=== PATIENT | female | born 1975 | race Hispanic/Latino ===

== ENCOUNTER 2017-11-28 17:44 | Emergency (ER) | payer MEDICAID, OTHER ==
[2017-11-28] MEDS ORDERED: ONDANSETRON ODT 4 MG TAB ONE (18:29)
== END 2017-11-28 18:44 | disposition home or self-care (01) ==
LOC: EDH 17:44 → EDBD 17:44 → EDH 18:44
DX: E86.0 Dehydration (principal); F41.9 Anxiety disorder, unspecified; B96.81 Helicobacter pylori [H. pylori] as the cause of diseases classified elsewhere; Z88.0 Allergy status to penicillin; Z88.1 Allergy status to other antibiotic agents; Z98.890 Other specified postprocedural states

== ENCOUNTER 2018-04-18 13:01 | Emergency (ER) | payer MEDICAID ==
[2018-04-18 13:44] LABS: BASOPHILS % (AUTO) 1.1 % (0.0-5.0); EOSINOPHILS % (AUTO) 1.1 % (0.0-8.0); HEMATOCRIT 33.8 % (36-48); LYMPHOCYTES % (AUTO) 22.4 % (21.0-51.0); MEAN CORPUSCULAR HEMOGLOBIN 24.4 pg (27.0-33.0); MEAN CORPUSCULAR HGB CONC 31.4 g/dL (32.0-36.0); MEAN CORPUSCULAR VOLUME 77.6 fL (79-99); MONOCYTES % (AUTO) 12.4 % (3.0-13.0); NUCLEATED RED BLOOD CELLS 0.1 % (0.0-0.19); PLATELET COUNT (AUTO) 195 K/uL (130-400); RED BLOOD CELL COUNT(AUTO) 4.35 MIL/uL (4.00-5.50); WHITE BLOOD COUNT (AUTO) 6.2 K/uL (4.8-10.8)
[2018-04-18 13:50] LABS: APPEARANCE,URINE Cloudy (CLEAR); BILIRUBIN,URINE Negative (NEGATIVE); COLOR,URINE Dark Yellow (YELLOW); GLUCOSE, URINE (UA) Negative (NEGATIVE); KETONES,URINE 15 mg/dL (NEGATIVE); LEUKOCYTE ESTERASE ,URINE Small (NEGATIVE); NITRATE,URINE Negative (NEGATIVE); OCCULT BLOOD,URINE Negative (NEGATIVE); PH,URINE 7.5 (5.0-8.0); PROTEIN,URINE Trace (NEGATIVE)
[2018-04-18 13:56] LABS: CREATININE 0.8 mg/dL (0.5-1.5); POTASSIUM 3.8 mmol/L (3.5-5.1)
[2018-04-18 13:58] LABS: AMPHET/METH SCREEN,URINE NEGATIVE (NEGATIVE); BARBITURATE SCREEN, URINE NEGATIVE (NEGATIVE); BENZODIAZEPINES SCREEN,URINE NEGATIVE (NEGATIVE); CANNABINOID SCREEN,URINE POSITIVE (NEGATIVE); COCAINE SCREEN,URINE POSITIVE (NEGATIVE); OPIATE SCREEN,URINE NEGATIVE (NEGATIVE); PHENCYCLIDINE SCREEN,URINE NEGATIVE (NEGATIVE)
[2018-04-18 14:02] LABS: ALBUMIN 4.2 g/dL (3.5-5.0); BILIRUBIN,TOTAL 0.7 mg/dL (0.2-1.0); MAGNESIUM 2.4 mg/dL (1.80-2.40)
[2018-04-18 14:20] LABS: BACTERIA,URINE Few /HPF (None Seen)
[2018-04-18 14:23] LABS: RBC,URINE 0-1 /HPF (0-1); SQUAMOUS EPITHELIAL CELL,UR 30-50 /HPF (0-2)
[2018-04-18 14:26] LABS: HCG,QUAL RESULT NEGATIVE (NEGATIVE)
== END 2018-04-18 14:42 | disposition home or self-care (01) ==
LOC: EDH 13:01
DX: F14.10 Cocaine abuse, uncomplicated (principal); F12.10 Cannabis abuse, uncomplicated; R53.1 Weakness; Z88.1 Allergy status to other antibiotic agents; Z88.0 Allergy status to penicillin; Z88.8 Allergy status to other drugs, medicaments and biological substances
CPT/HCPCS: 36415; 80053; 80305; 81001; 81025; 83735; 85025; 93005

== ENCOUNTER 2021-12-03 00:38 | Emergency (ER) | payer MEDICAID ==
[2021-12-03 00:56] VITALS: BP 123/75
== END 2021-12-03 01:24 | disposition left against medical advice (07) ==
LOC: EDH 00:38
DX: R07.9 Chest pain, unspecified (principal); Z53.21 Procedure and treatment not carried out due to patient leaving prior to being seen by health care provider

== ENCOUNTER 2022-04-23 08:29 | Emergency (ER) | payer MEDICAID ==
[~2022-04-23] VITALS: Ht 157.5 cm; Wt 68.0 kg
[2022-04-23] MEDS ORDERED: ACETAMINOPHEN 500 MG TABLET PO ONE (09:00)
[2022-04-23] MEDS ORDERED: IPRATROPIUM/ALBUTEROL SULFATE 3 ML SOLUTION IH ONE (09:00)
[2022-04-23 09:15] LABS: INFLUENZA TYPE A NEGATIVE FOR TYPE A (NEG); INFLUENZA TYPE B NEGATIVE FOR TYPE B (NEG)
[2022-04-23] MEDS ORDERED: SOLU-MEDROL 125MG VIAL IM ONE (09:30)
[2022-04-23] MEDS ORDERED: AZITHROMYCIN 250 MG TABLET PO ONE (09:30)
[2022-04-23] MEDS ORDERED: METH4TAB3 PO (09:49)
[2022-04-23] MEDS ORDERED: AZIT1PAC7 PO (09:49)
[2022-04-23] MEDS ORDERED: D-ME118S47 PO (09:49)
[2022-04-23] MEDS ORDERED: ACET-66 PO (09:49)
[2022-04-23 10:10] VITALS: BP 132/78
== END 2022-04-23 10:10 | disposition home or self-care (01) ==
LOC: EDH 08:29
DX: J06.9 Acute upper respiratory infection, unspecified (principal); R05.9 Cough, unspecified; Z20.822 Contact with and (suspected) exposure to COVID-19; D64.9 Anemia, unspecified; F41.9 Anxiety disorder, unspecified; F32.A Depression, unspecified; G62.9 Polyneuropathy, unspecified; Z88.0 Allergy status to penicillin
CPT/HCPCS: 99284; 71045; 87635; 87804 ×2; 96372; 94640; C9803; J2930

== ENCOUNTER 2022-04-26 04:41 | Emergency (ER) | payer MEDICAID ==
[~2022-04-26] VITALS: Ht 160 cm; Wt 68.0 kg
[~2022-04-26 04:41] MED LIST: ACET-66 PO; AZIT1PAC7 PO; D-ME118S47 PO; METH4TAB3 PO
[2022-04-26 06:45] LABS: BASOPHILS % (AUTO) 0.4 % (0.0-5.0); EOSINOPHILS % (AUTO) 1.4 % (0.0-8.0); HEMATOCRIT 31.1 % (36-48); LYMPHOCYTES % (AUTO) 41.7 % (21.0-51.0); MEAN CORPUSCULAR HEMOGLOBIN 24.8 pg (27.0-33.0); MEAN CORPUSCULAR HGB CONC 30.9 g/dL (32.0-36.0); MEAN CORPUSCULAR VOLUME 80.4 fL (79-99); MONOCYTES % (AUTO) 9.6 % (3.0-13.0); NEUTROPHILS % (AUTO) 46.7 % (40.0-77.0); PLATELET COUNT (AUTO) 265 K/uL (130-400); RED BLOOD CELL COUNT(AUTO) 3.87 MIL/uL (4.00-5.50); WHITE BLOOD COUNT (AUTO) 5.1 K/uL (4.8-10.8)
[2022-04-26 07:08] LABS: ALBUMIN 3.5 g/dL (3.5-5.0); CREATININE 0.7 mg/dL (0.5-1.5); POTASSIUM 3.4 mmol/L (3.5-5.1); TOTAL PROTEIN, SERUM 7.1 g/dL (6.0-8.3)
[2022-04-26 08:47] VITALS: BP 122/65
== END 2022-04-26 08:48 | disposition home or self-care (01) ==
LOC: EDH 04:41
DX: R20.2 Paresthesia of skin (principal); D64.9 Anemia, unspecified; G62.9 Polyneuropathy, unspecified; Z88.0 Allergy status to penicillin; Z79.899 Other long term (current) drug therapy
CPT/HCPCS: 36415; 70450; 80053; 85025

== ENCOUNTER 2022-08-27 04:20 | Emergency (ER) | payer MEDICAID ==
[~2022-08-27] VITALS: Ht 165.1 cm; Wt 70.3 kg
[2022-08-27 04:40] LABS: BASOPHILS % (AUTO) 0.7 % (0.0-5.0); EOSINOPHILS % (AUTO) 2.2 % (0.0-8.0); LYMPHOCYTES % (AUTO) 26.6 % (21.0-51.0); MEAN CORPUSCULAR HEMOGLOBIN 23.9 pg (27.0-33.0); MEAN CORPUSCULAR HGB CONC 30.6 g/dL (32.0-36.0); MEAN CORPUSCULAR VOLUME 78.1 fL (79-99); MONOCYTES % (AUTO) 7.8 % (3.0-13.0); NEUTROPHILS % (AUTO) 62.4 % (40.0-77.0); PLATELET COUNT (AUTO) 255 K/uL (130-400); RED BLOOD CELL COUNT(AUTO) 4.48 MIL/uL (4.00-5.50); RED CELL DISTRIBUTION WIDTH 15.7 % (11.0-15.5); WHITE BLOOD COUNT (AUTO) 7.1 K/uL (4.8-10.8)
[2022-08-27 04:41] LABS: APPEARANCE,URINE CLEAR (CLEAR); BILIRUBIN,URINE NEGATIVE (NEGATIVE); COLOR,URINE LIGHT-YELLOW (YELLOW); GLUCOSE, URINE (UA) NEGATIVE (NEGATIVE); KETONES,URINE NEGATIVE (NEGATIVE); LEUKOCYTE ESTERASE ,URINE NEGATIVE Leu/uL (NEGATIVE); NITRATE,URINE NEGATIVE (NEGATIVE); OCCULT BLOOD,URINE NEGATIVE (NEGATIVE); PH,URINE 7.5 (5.0-8.0); PROTEIN,URINE NEGATIVE (NEGATIVE); UROBILINOGEN,URINE 0.2 mg/dL (0.2-1.0)
[2022-08-27 04:48] LABS: CREATININE 0.7 mg/dL (0.5-1.5); POTASSIUM 3.2 mmol/L (3.5-5.1)
[2022-08-27 04:58] LABS: TOTAL PROTEIN, SERUM 7.7 g/dL (6.0-8.3)
[2022-08-27] MEDS ORDERED: DEXAMETHASONE SOD PHOSPHATE 4 MG/ML 1ML VIAL IVP ONE (05:30)
[2022-08-27] MEDS ORDERED: IPRATROPIUM/ALBUTEROL SULFATE 3 ML SOLUTION IH ONE (05:30)
[2022-08-27] MEDS ORDERED: METH4TAB3 PO (05:38)
[2022-08-27] MEDS ORDERED: KCL 20 MEQ ERTAB PO ONE (06:00)
[2022-08-27 06:13] VITALS: BP 128/69
== END 2022-08-27 06:17 | disposition home or self-care (01) ==
LOC: EDH 04:20
DX: J06.9 Acute upper respiratory infection, unspecified (principal); R06.2 Wheezing; E87.6 Hypokalemia; F41.9 Anxiety disorder, unspecified; Z88.0 Allergy status to penicillin; Z79.899 Other long term (current) drug therapy
CPT/HCPCS: 99284; 96374; 80053; 85025; 81003; 36415; 93005; 94640; J1100

== ENCOUNTER 2022-12-05 10:54 | Emergency (ER) | payer MEDICAID ==
[~2022-12-05] VITALS: Ht 152.4 cm; Wt 63.5 kg
[2022-12-05 10:56] VITALS: BP 101/66
== END 2022-12-05 12:52 | disposition home or self-care (01) ==
LOC: EDH 10:54
DX: S92.401A Displaced unspecified fracture of right great toe, initial encounter for closed fracture (principal); X58.XXXA Exposure to other specified factors, initial encounter; Y93.89 Activity, other specified; Y92.89 Other specified places as the place of occurrence of the external cause; Y99.8 Other external cause status
CPT/HCPCS: 73600; 73620

== ENCOUNTER 2023-02-07 02:57 | Emergency (ER) | payer MEDICAID ==
[~2023-02-07] VITALS: Ht 160 cm; Wt 65.8 kg
[2023-02-07 03:25] LABS: BASOPHILS # (AUTO) 0.06 K/uL (0.00-0.20); BASOPHILS % (AUTO) 0.9 % (0.0-5.0); EOSINOPHILS # (AUTO) 0.13 K/uL (0.00-0.70); EOSINOPHILS % (AUTO) 1.9 % (0.0-8.0); HEMATOCRIT 32.6 % (36-48); IMMATURE GRANULOCYTE ABSOLUTE 0.02 K/uL (0-1); LYMPHOCYTES # (AUTO) 1.9 K/uL (1.0-4.8); LYMPHOCYTES % (AUTO) 28.5 % (21.0-51.0); MEAN CORPUSCULAR HEMOGLOBIN 22.9 pg (27.0-33.0); MEAN CORPUSCULAR HGB CONC 29.8 g/dL (32.0-36.0); MEAN CORPUSCULAR VOLUME 77.1 fL (79-99); MONOCYTES # (AUTO) 0.6 K/uL (0.1-1.0); MONOCYTES % (AUTO) 8.8 % (3.0-13.0); NEUTROPHILS % (AUTO) 59.6 % (40.0-77.0); PLATELET COUNT (AUTO) 320 K/uL (130-400); RED BLOOD CELL COUNT(AUTO) 4.23 MIL/uL (4.00-5.50); RED CELL DISTRIBUTION WIDTH 15.8 % (11.0-15.5); WHITE BLOOD COUNT (AUTO) 6.7 K/uL (4.8-10.8)
[2023-02-07] MEDS ORDERED: LACTATED RINGERS 1000ML 1,000 ML IV ONE (03:30)
[2023-02-07 03:48] LABS: APPEARANCE,URINE CLEAR (CLEAR); BILIRUBIN,URINE NEGATIVE (NEGATIVE); COLOR,URINE COLORLESS (YELLOW); CREATININE 0.8 mg/dL (0.5-1.5); GLUCOSE, URINE (UA) NEGATIVE (NEGATIVE); KETONES,URINE NEGATIVE (NEGATIVE); LEUKOCYTE ESTERASE ,URINE 250 Leu/uL (NEGATIVE); NITRATE,URINE NEGATIVE (NEGATIVE); OCCULT BLOOD,URINE NEGATIVE (NEGATIVE); POTASSIUM 3.6 mmol/L (3.5-5.1); PROTEIN,URINE NEGATIVE (NEGATIVE); UROBILINOGEN,URINE 0.2 mg/dL (0.2-1.0)
[2023-02-07 03:51] LABS: ADD UA MICROSCOPIC YES; HCG,QUALITATIVE URINE NEGATIVE (NEGATIVE)
[2023-02-07 03:53] LABS: ALBUMIN 3.8 g/dL (3.5-5.0); BACTERIA,URINE RARE /HPF (None Seen); BILIRUBIN,TOTAL 0.3 mg/dL (0.2-1.0); MUCUS,URINE RARE LPF (None Seen); RBC,URINE 0-1 /HPF (0-1); SQUAMOUS EPITHELIAL CELL,UR FEW /HPF (0-2); TOTAL PROTEIN, SERUM 7.5 g/dL (6.0-8.3)
[2023-02-07 04:46] VITALS: BP 115/62; PULSE 78; RESP 16; O2SAT 98
[2023-02-07] MEDS ORDERED: OMEP40CA21 PO (04:50)
== END 2023-02-07 04:56 | disposition home or self-care (01) ==
LOC: EDH 02:57
DX: R10.13 Epigastric pain (principal); Z79.52 Long term (current) use of systemic steroids; Z88.0 Allergy status to penicillin
CPT/HCPCS: 36415; 80053; 81001; 81025; 83690; 85025; 87088

== ENCOUNTER 2023-02-18 08:40 | Emergency (ER) | payer MEDICAID ==
[~2023-02-18] VITALS: Ht 157.5 cm; Wt 67.1 kg
[~2023-02-18 08:40] MED LIST changes: +OMEP40CA21 PO
[2023-02-18 08:42] VITALS: BP 144/68; PULSE 72; RESP 18; O2SAT 100
[2023-02-18] MEDS ORDERED: CETI10TA57 PO (09:24)
== END 2023-02-18 09:52 | disposition home or self-care (01) ==
LOC: EDH 08:40
DX: J06.9 Acute upper respiratory infection, unspecified (principal); Z79.52 Long term (current) use of systemic steroids; Z79.899 Other long term (current) drug therapy; Z88.0 Allergy status to penicillin
CPT/HCPCS: 87880; 99282

== ENCOUNTER 2023-07-23 07:41 | Emergency (ER) | payer MEDICAID ==
[~2023-07-23] VITALS: Ht 160 cm; Wt 74.8 kg
[~2023-07-23 07:41] MED LIST changes: +BROM118S48 PO; +CETI10TA57 PO; -D-ME118S47 PO
[2023-07-23 08:15] LABS: BASOPHILS # (AUTO) 0.06 K/uL (0.00-0.20); BASOPHILS % (AUTO) 1.1 % (0.0-5.0); EOSINOPHILS # (AUTO) 0.09 K/uL (0.00-0.70); EOSINOPHILS % (AUTO) 1.6 % (0.0-8.0); HEMATOCRIT 35.2 % (36-48); IMMATURE GRANULOCYTE ABSOLUTE 0.01 K/uL (0-1); LYMPHOCYTES # (AUTO) 1.7 K/uL (1.0-4.8); LYMPHOCYTES % (AUTO) 31.3 % (21.0-51.0); MEAN CORPUSCULAR HGB CONC 29.5 g/dL (32.0-36.0); MEAN CORPUSCULAR VOLUME 74.6 fL (79-99); MONOCYTES # (AUTO) 0.6 K/uL (0.1-1.0); MONOCYTES % (AUTO) 11.4 % (3.0-13.0); NEUTROPHILS % (AUTO) 54.4 % (40.0-77.0); PLATELET COUNT (AUTO) 318 K/uL (130-400); RED BLOOD CELL COUNT(AUTO) 4.72 MIL/uL (4.00-5.50); RED CELL DISTRIBUTION WIDTH 16.9 % (11.0-15.5); WHITE BLOOD COUNT (AUTO) 5.5 K/uL (4.8-10.8)
[2023-07-23 08:26] LABS: BILIRUBIN,URINE NEGATIVE (NEGATIVE); COLOR,URINE YELLOW (YELLOW); GLUCOSE, URINE (UA) NEGATIVE (NEGATIVE); KETONES,URINE 5 mg/dL (NEGATIVE); LEUKOCYTE ESTERASE ,URINE NEGATIVE Leu/uL (NEGATIVE); NITRATE,URINE NEGATIVE (NEGATIVE); OCCULT BLOOD,URINE NEGATIVE (NEGATIVE); PH,URINE 5.5 (5.0-8.0); PROTEIN,URINE 50 mg/dL (NEGATIVE); UROBILINOGEN,URINE 0.2 mg/dL (0.2-1.0)
[2023-07-23 08:29] LABS: HCG,QUALITATIVE URINE NEGATIVE (NEGATIVE)
[2023-07-23] MEDS ORDERED: FAMOTIDINE 20MG VIAL IV ONE (08:30)
[2023-07-23] MEDS ORDERED: LACTATED RINGERS 1000ML 1,047 ML IV ONE (08:30)
[2023-07-23] MEDS ORDERED: METOCLOPRAMIDE 10 MG/2 ML VIAL IVP ONE (08:30)
[2023-07-23] MEDS ORDERED: METRONIDAZOLE 500MG/100ML BAG 100 ML IVPB SCH (08:30)
[2023-07-23 08:35] LABS: ADD UA MICROSCOPIC YES; APPEARANCE,URINE SLIGHTLY CLOUDY (CLEAR)
[2023-07-23 08:40] LABS: BACTERIA,URINE RARE /HPF (None Seen); MUCUS,URINE MANY LPF (None Seen); SQUAMOUS EPITHELIAL CELL,UR MANY /HPF (0-2); YEAST,URINE HYPHAE RARE /HPF (None Seen)
[2023-07-23 09:24] VITALS: BP 128/85; PULSE 85; RESP 16; O2SAT 97
[2023-07-23 10:12] LABS: AMPHET/METH SCREEN,URINE NEGATIVE (NEGATIVE); BARBITURATE SCREEN, URINE NEGATIVE (NEGATIVE); BENZODIAZEPINES SCREEN,URINE POSITIVE (NEGATIVE); CANNABINOID SCREEN,URINE POSITIVE (NEGATIVE); COCAINE SCREEN,URINE NEGATIVE (NEGATIVE); OPIATE SCREEN,URINE NEGATIVE (NEGATIVE); PHENCYCLIDINE SCREEN,URINE NEGATIVE (NEGATIVE)
[2023-07-23] MEDS ORDERED: METR-172 PO (10:22)
[2023-07-23] MEDS ORDERED: METO-296 PO (10:22)
== END 2023-07-23 09:53 | disposition left against medical advice (07) ==
LOC: EDH 07:41
DX: K52.9 Noninfective gastroenteritis and colitis, unspecified (principal); F13.10 Sedative, hypnotic or anxiolytic abuse, uncomplicated; F12.10 Cannabis abuse, uncomplicated; Z79.899 Other long term (current) drug therapy; Z88.0 Allergy status to penicillin
CPT/HCPCS: 99284; 96365; 96375; 80305; 85025; 81025; 36415; 74018; 81001; J7120; J2765; J3490; S0028

== ENCOUNTER 2023-08-20 03:18 | Emergency (ER) | payer MEDICAID ==
[~2023-08-20 03:18] MED LIST changes: +METO-296 PO; +METR-172 PO
[2023-08-20 04:29] LABS: HEMATOCRIT 30.6 % (36-48); IMMATURE GRANULOCYTE ABSOLUTE 0.02 K/uL (0-1); LYMPHOCYTES # (AUTO) 1.2 K/uL (1.0-4.8); LYMPHOCYTES % (AUTO) 22.1 % (21.0-51.0); MEAN CORPUSCULAR HEMOGLOBIN 21.9 pg (27.0-33.0); MEAN CORPUSCULAR HGB CONC 29.7 g/dL (32.0-36.0); MEAN CORPUSCULAR VOLUME 73.7 fL (79-99); MONOCYTES # (AUTO) 0.3 K/uL (0.1-1.0); MONOCYTES % (AUTO) 5.3 % (3.0-13.0); NEUTROPHILS % (AUTO) 72.2 % (40.0-77.0); PLATELET COUNT (AUTO) 303 K/uL (130-400); RED BLOOD CELL COUNT(AUTO) 4.15 MIL/uL (4.00-5.50); RED CELL DISTRIBUTION WIDTH 17.2 % (11.0-15.5); WHITE BLOOD COUNT (AUTO) 5.5 K/uL (4.8-10.8)
[2023-08-20 04:36] LABS: CREATININE 0.8 mg/dL (0.5-1.5); POTASSIUM 3.7 mmol/L (3.5-5.1)
[2023-08-20] MEDS: IPRATROPIUM/ALBUTEROL SULFATE 3 ML SOLUTION IH PRN (04:36)
[2023-08-20 04:41] VITALS: PULSE 81; RESP 18
[2023-08-20 04:41] LABS: ALBUMIN 3.5 g/dL (3.5-5.0); BILIRUBIN,TOTAL 0.2 mg/dL (0.2-1.0); TOTAL PROTEIN, SERUM 7.2 g/dL (6.0-8.3)
[2023-08-20] MEDS: SOLU-MEDROL 125MG VIAL IM ONE (04:54)
[2023-08-20 05:34] VITALS: BP 121/68; PULSE 80; RESP 18; O2SAT 99
[2023-08-20] MEDS ORDERED: ALBU2.5V2 IH (05:52)
[2023-08-20] MEDS ORDERED: NEBU-305 MC (05:52)
== END 2023-08-20 06:00 | disposition home or self-care (01) ==
LOC: EDH 03:18
DX: J44.1 Chronic obstructive pulmonary disease with (acute) exacerbation (principal); E03.9 Hypothyroidism, unspecified; F41.9 Anxiety disorder, unspecified; Z79.899 Other long term (current) drug therapy; Z88.0 Allergy status to penicillin
CPT/HCPCS: 36415; 71046; 80053; 84703; 85025; 94640; 96372

== ENCOUNTER 2023-11-10 03:24 | Emergency (ER) | payer MEDICAID ==
[~2023-11-10 03:24] MED LIST changes: +ALBU2.5V2 IH; +NEBU-305 MC
[2023-11-10 03:46] VITALS: BP 110/69; PULSE 96; RESP 18; O2SAT 97
[2023-11-10 03:54] LABS: BASOPHILS # (AUTO) 0.06 K/uL (0.00-0.20); BASOPHILS % (AUTO) 0.9 % (0.0-5.0); EOSINOPHILS # (AUTO) 0.21 K/uL (0.00-0.70); EOSINOPHILS % (AUTO) 3.1 % (0.0-8.0); HEMATOCRIT 30.6 % (36-48); IMMATURE GRANULOCYTE ABSOLUTE 0.02 K/uL (0-1); LYMPHOCYTES # (AUTO) 1.1 K/uL (1.0-4.8); LYMPHOCYTES % (AUTO) 15.8 % (21.0-51.0); MEAN CORPUSCULAR HEMOGLOBIN 22.3 pg (27.0-33.0); MEAN CORPUSCULAR HGB CONC 30.1 g/dL (32.0-36.0); MEAN CORPUSCULAR VOLUME 74.3 fL (79-99); MONOCYTES # (AUTO) 0.7 K/uL (0.1-1.0); MONOCYTES % (AUTO) 9.7 % (3.0-13.0); NEUTROPHILS # (AUTO) 4.8 K/uL (1.8-7.7); NEUTROPHILS % (AUTO) 70.2 % (40.0-77.0); PLATELET COUNT (AUTO) 283 K/uL (130-400); RED BLOOD CELL COUNT(AUTO) 4.12 MIL/uL (4.00-5.50); RED CELL DISTRIBUTION WIDTH 16.7 % (11.0-15.5); WHITE BLOOD COUNT (AUTO) 6.8 K/uL (4.8-10.8)
[2023-11-10 03:58] LABS: CREATININE 0.7 mg/dL (0.5-1.0); POTASSIUM 3.3 mmol/L (3.5-5.1)
[2023-11-10 04:03] LABS: ALBUMIN 3.5 g/dL (3.5-5.0); B-TYPE NATRIURETIC PEPTIDE 20 pg/mL (0-100); BILIRUBIN,TOTAL 0.3 mg/dL (0.2-1.0); TOTAL PROTEIN, SERUM 7.2 g/dL (6.0-8.3)
[2023-11-10] MEDS ORDERED: BENZ-39 PO (04:20)
== END 2023-11-10 04:40 | disposition home or self-care (01) ==
LOC: EDH 03:24
DX: J06.9 Acute upper respiratory infection, unspecified (principal); E03.9 Hypothyroidism, unspecified; F41.9 Anxiety disorder, unspecified; Z88.0 Allergy status to penicillin; Z79.899 Other long term (current) drug therapy
CPT/HCPCS: 36415; 71045; 80053; 83880; 84484; 84703; 85025; 93005

== ENCOUNTER 2024-05-16 07:18 | Emergency (ER) | payer MEDICAID ==
[~2024-05-16] VITALS: Ht 157.5 cm; Wt 72.6 kg
[~2024-05-16 07:18] MED LIST changes: +BENZ-39 PO
[2024-05-16] MEDS: NAPROXEN 500 MG TABLET PO ONE (07:30)
[2024-05-16] MEDS ORDERED: NAPR-1505 PO (08:01)
--- NOTE | 2024-05-16 08:01 | ERN ---
General Chief Complaint: Ankle Problem Stated Complaint: RIGHT ANKLE PAIN Time Seen by MD: 07:19 Source: patient History of Present Illness Initial Comments Patient is a 48-year-old female coming in to be evaluated for ankle pain. Per patient she was walking down the steps accidentally misstepped and she states that now she has pain in her right ankle. Allergies: Coded Allergies: Penicillins (Unverified Allergy, Unknown, 12/03/21) Home Meds Active Scripts Benzonatate (Tessalon Perles) 100 Mg Cap, 100 MG PO TID for cough, #20 CAP Prov:GLORIA MESA DO 11/10/23 Nebulizer (Nebulizer) 1 Each Each, EACH MC QID for copd exacerbation, #1 Prov:TATYANA LIU MD 08/20/23 Albuterol Sulfate (Albuterol Sulfate) 2.5 Mg/3 Ml (0.083 %) Vial.neb, 2.5 MG IH QIDP PRN for WHEEZING, #120 INH Prov:TATYANA LIU MD 08/20/23 Metoclopramide HCl (Reglan) 10 Mg Tablet, 10 MG PO QIDP PRN for NAUSEA, #20 TAB 1 Refill Prov:RAJEEV BROWN Sr., MD 07/23/23 Metronidazole (Metronidazole) 500 Mg Tablet, 500 MG PO TID for 7 Days, #21 TAB 0 Refills Prov:RAJEEV BROWN Sr., MD 07/23/23 Cetirizine HCl (Cetirizine HCl) 10 Mg Tablet, 10 MG PO DAILY PRN for NASAL CONGESTION, #30 TAB 0 Refills Prov:DIVYA SANTANA MD 02/18/23 Omeprazole (Omeprazole) 40 Mg Capsule.dr, 40 MG PO DAILY, #30 CAP Prov:TATYANA LIU MD 02/07/23 Methylprednisolone (Medrol) 4 Mg Tab.ds.pk, 4 MG PO AD for 5 Days, #1 KIT Prov:LEANNE MILLS MD 08/27/22 Methylprednisolone (Medrol) 4 Mg Tab.ds.pk, 4 MG PO AD for 5 Days, #1 KIT Prov:LEANNE MILLS MD 04/23/22 D-Methorphan Hb/P-Epd HCl/Bpm (Bromfed Dm Cough Syrup) 118 Ml Syrup, 10 ML PO QID for COUGH, #120 ML Prov:LEANNE MILLS MD 04/23/22 Acetaminophen (Acetaminophen) 500 Mg Tablet, 1000 MG PO QID for FEVER, #50 TAB Prov:LEANNE MILLS MD 04/23/22 Azithromycin (Azithromycin) 1 Gm Packet, 1 TAB PO AD for 5 Days, #1 PKT Prov:LEANNE MILLS MD 04/23/22 Past Medical History Past Medical History: Anemia, Anxiety, Hypothyroid, Seizure, Other Medical History Other: EPILEPSY Past Surgical History: None Surgical History Other: ABD SX AT 18 DAYS OLD Family History Family History: CAD, DM, HTN Social History Social History: Negative, Lives with family Female( History) History: Not Applicable ROS Dictation CONSTITUTIONAL: No chills, no fever, no weakness, no diaphoresis, no malaise. HEAD/FACE: No signs of trauma. EENT: No eye pain, no blurred vision, no tearing, no double vision, no ear pain, no ear discharge, no nose pain, no nasal congestion, no throat pain, no throat swelling, no mouth pain. RESPIRATORY: No cough, no orthopnea, no SOB, no stridor, no wheezing. CARDIOVASCULAR: No chest pain, no edema, no palpitations, no syncope. GASTROINTESTINAL/ABDOMINAL: No abdominal pain, no constipation, no diarrhea, no nausea, no vomiting. GENITOURINARY: No abnormal discharge, no dysuria, no frequent urination, no hematuria. No complaints of pain in the genitals. MUSCULOSKELETAL: No back pain, no gout, joint pain, joint swelling, no muscle pain, no muscle stiffness, no neck pain. INTEGUMENTARY: No change in color, no change in hair/nails, no dryness, no lesion, no lumps, no rash. NEUROLOGICAL/PSYCH: No anxiety, not depressed, no emotional problem, no headache, no numbness, no pre-existing deficit, no history of seizures, no tremors, no weakness. HEMATOLOGIC/LYMPHATIC: Not anemic, no history of blood clots, no apparent bleeding, no bruising, glands not swollen. All Systems Negative, Except as Noted. Physical Exam Physical Exam Dictation VITAL SIGNS: Reviewed. GENERAL APPEARANCE: Alert, oriented x3, no acute distress, obese. HEAD AND FACE: Non-traumatic. EYES: PERRL, pink conjunctivas, eyelid no trauma, anterior chamber clear. EARS: Pinnas intact and no signs of trauma or erythema. Ear canals clear and no discharge. TMs no erythema. NOSE: No discharge, no bleeding. OROPHARYNX: Mouth normal, teeth no caries, tongue pink. Pharynx clear, no erythema. Tonsils no exudates, no abscesses noted. Mucous membrane moist. NECK: Supple, non-tender, no thyromegaly, no masses, no JVD, no bruits. BREAST: Deferred. CHEST: No tenderness, no crepitus, no paradoxical movement, no retractions. LUNGS: Clear, well-ventilated, symmetric, no rales, no wheezing, no rhonchi, no stridor, good breath sounds bilaterally. HEART: Regular rate, regular rhythm, no murmur, no gallops. VASCULAR: No peripheral edema. ABDOMEN: Soft, positive bowel sounds, nondistended, no guarding, nontender, no rebound, no masses no hepatomegaly, no splenomegaly, no Petit's sign, no hernias. RECTAL: Deferred. GENITAL: Deferred. NEUROLOGICAL: Normal speech, gross motor function intact, gross sensory function intact. MUSCULOSKELETAL: Neck nontender, full range of motion, back nontender, full range of motion. EXTREMITIES: Nontender, full range of motion. Right echo pain on palpation mild swelling SKIN: Color pink, dry, no turgor, no rash, no lacerations, no abrasions, no contusions. LYMPHATICS: Deferred. Results Laboratory and Microbiology Labs Reviewed?: Yes EKG/XRAY/US/CT/MRI X-RAY Comment Right ankle x-ray-NAD MDM MDM: Differential diagnosis: Ankle fracture, ankle sprain, Patient is a 48-year-old female coming in to be evaluated for right ankle pain. Mechanism of action was traumatic. X-ray did not disclose acute findings. Patient will be discharged with a diagnosis of ankle sprain. ED Course Orders Procedure Category Date Status Time Ankle 2vws Rt RAD 05/16/24 Taken 07:22 Naproxen (Naprosyn) PHA 05/16/24 Complete 07:30 Current Medications Medications (Trade) Dose Ordered Sig/Latha Route PRN Reason Start Time Stop Time Status Last Admin Dose Admin Naproxen (Naprosyn) 500 mg ONCE ONCE PO 05/16/24 07:30 05/16/24 07:31 DC 05/16/24 07:30 Vital Signs Date Time Temp Pulse Resp B/P (MAP) Pulse Ox O2 Delivery O2 Flow Rate FiO2 05/16/24 07:51 98.2 82 16 108/55 98 Room Air* 0 21 05/16/24 07:18 98.2 91 16 112/56 98 Room Air 0 DX & DISP Disposition: Discharge Departure Impression: Primary Impression: Ankle sprain Condition: Stable Scripts Naproxen (Naproxen) 375 Mg Tablet.dr 375 MG PO BID PRN for PAIN LEVEL 1 TO 5 for 10 Days, #20 TAB Prov: DIMITRY FLORES MD 05/16/24 Additional Instructions: FOLLOW-UP WITH PRIMARY CARE PROVIDER IN 1 TO 2 DAYS. TAKE MEDICATIONS DIRE CTED HERE IN THE EMERGENCY ROOM. OKAY TO CONTINUE HOME MEDICATIONS UNLESS OTHERWISE DISCUSSED DURING YOUR VISIT IN THE EMERGENCY ROOM TODAY. RETURN TO YOUR NEAREST EMERGENCY ROOM IF SYMPTOMS WORSEN OR IF THERE IS NO IMPROVEMENT. CALL 911 IF YOU NEED IMMEDIATE ASSISTANCE. TAKE TYLENOL [id number] NEEDED AND IF NO CONTRAINDICATIONS ARE PRESENT. INCREASE ORAL HYDRATION. A WOUND CULTURE OR URINE CULTURE WAS ORDERED HERE IN THE EMERGENCY ROOM DEPARTMENT PLEASE FOLLOW-UP WITH PRIMARY CARE PROVIDER AND ADVISE THEM TO GET REPEAT PORTS FROM OUR FACILITY. IF YOU HAD ANY ALLEN WRAP/SPLINTS THAT WERE APPLIED HERE, PLEASE DO NOT REMOVE THEM UNTIL YOU SEE YOUR PRIMARY CARE OR SPECIALTY. Referrals: Referrals: LIAM RESENDEZ MD (PCP) Time of Disposition: 08:00 DIMITRY FLORES MD May 16, 2024 08:01
[2024-05-16 08:45] VITALS: BP 106/47; PULSE 71; RESP 16; TEMP 98.2; O2SAT 98
--- NOTE | 2024-05-16 09:38 | HMCIMG ---
ANKLE 2VWS RT REASON: ankle pain TECHNIQUE: 2 views were obtained. FINDINGS: There is no evidence of fracture or dislocation. There is no joint effusion. The soft tissues appear unremarkable. There is no evidence of a radiopaque foreign body. IMPRESSION: No acute findings.
== END 2024-05-16 08:59 | disposition home or self-care (01) ==
LOC: EDH 07:18
DX: S93.409A Sprain of unspecified ligament of unspecified ankle, initial encounter (principal); E03.9 Hypothyroidism, unspecified; G40.909 Epilepsy, unspecified, not intractable, without status epilepticus; Z79.899 Other long term (current) drug therapy; Z88.0 Allergy status to penicillin; W01.0XXA Fall on same level from slipping, tripping and stumbling without subsequent striking against object, initial encounter; Y93.01 Activity, walking, marching and hiking; Y92.89 Other specified places as the place of occurrence of the external cause; Y99.8 Other external cause status
CPT/HCPCS: 73600; 99284

== ENCOUNTER 2024-06-17 10:07 | Emergency (ER) | payer MEDICAID ==
[~2024-06-17 10:07] MED LIST changes: +NAPR-1505 PO
[2024-06-17 10:08] VITALS: BP 117/72; PULSE 88; RESP 16; TEMP 98.7; O2SAT 96
--- NOTE | 2024-06-17 10:17 | NUR ---
UPON TRIAGE, PT VOICED WANTING TO LEAVE. REPORTS HER FAMILY IS ON HER WAY TO PICK HER UP. IV PLACED BY EMS WAS REMOVED.
== END 2024-06-17 10:19 | disposition left against medical advice (07) ==
LOC: EDH 10:07
DX: R56.9 Unspecified convulsions (principal); Z53.21 Procedure and treatment not carried out due to patient leaving prior to being seen by health care provider

== ENCOUNTER → 2024-12-08 | Outpatient (CLI) | payer MEDICAID ==
--- NOTE | 2024-12-08 11:23 | HMCIMG ---
SHOULDER COMP 2+VWS LT HISTORY: Pain COMPARISON: None TECHNIQUE: 2 images of left shoulder were obtained. FINDINGS: There is no acute displaced fracture or dislocation. Degenerative changes are seen. IMPRESSION: 1. Findings as described above.
== END | disposition home or self-care (01) ==
LOC: RAH 09:46
PROVIDERS: ATTEND Family Medicine
DX: M19.012 Primary osteoarthritis, left shoulder (principal); M25.512 Pain in left shoulder
CPT/HCPCS: 73030

== ENCOUNTER 2024-12-22 21:14 | Emergency (ER) | payer MEDICAID ==
[~2024-12-22] VITALS: Ht 152.4 cm; Wt 61.2 kg
--- NOTE | 2024-12-22 21:29 | NUR ---
C-COLLAR REMOVED BY ASHWIN LOO AT THIS TIME
--- NOTE | 2024-12-22 21:30 | NUR ---
DR ARAUJO REMOVED C COLLAR AT THIS TIME.
[2024-12-22] MEDS: OCTYL 2-CYANOACRYLATE 1 EACH TP ONE ×2 (21:34)
--- NOTE | 2024-12-22 21:45 | ERN ---
General Chief Complaint: Mechanical Fall Stated Complaint: FALL Time Seen by MD: 21:18 Source: patient, family History of Present Illness Initial Comments 49-year-old female with a known seizure disorder. She states she has epilepsy. Today she told her that maybe she was going to have seizure and then 2 hours later when she and her were walking outside her noticed that the patient stopped his stared into space with her knees bent and then fell backwards onto the concrete hitting the back of her head. He called EMS who then brought the patient here. The patient herself states the last thing she remembers was walking with her . And then she remembers being brought to the emergency room by EMS with a C-collar in place. She states she is bleeding from her scalp and thinks she has a laceration. The patient takes gabapentin and Xanax for her seizures and she has been out of Xanax for the last two weeks. She states in the past the gabapentin has been enough to prevent her seizures but maybe this time it was not. She states no other symptoms no signs of infection no chest pain no shortness of breath. Allergies: Coded Allergies: Penicillins (Unverified Allergy, Unknown, 12/03/21) Home Meds Active Scripts Naproxen (Naproxen) 375 Mg Tablet.dr, 375 MG PO BID PRN for PAIN LEVEL 1 TO 5 for 10 Days, #20 TAB Prov:DIMITRY FLORES MD 05/16/24 Benzonatate (Tessalon Perles) 100 Mg Cap, 100 MG PO TID for cough, #20 CAP Prov:GLORIA MESA DO 11/10/23 Nebulizer (Nebulizer) 1 Each Each, EACH QID for copd exacerbation, #1 Prov:TATYANA LIU MD 08/20/23 Albuterol Sulfate (Albuterol Sulfate) 2.5 Mg/3 Ml (0.083 %) Vial.neb, 2.5 MG IH QIDP PRN for WHEEZING, #120 INH Prov:TATYANA LIU MD 08/20/23 Metoclopramide HCl (Reglan) 10 Mg Tablet, 10 MG PO QIDP PRN for NAUSEA, #20 TAB 1 Refill Prov:RAJEEV BROWN Sr., MD 07/23/23 Metronidazole (Metronidazole) 500 Mg Tablet, 500 MG PO TID for 7 Days, #21 TAB 0 Refills Prov:RAJEEV BROWN Sr., MD 07/23/23 Cetirizine HCl (Cetirizine HCl) 10 Mg Tablet, 10 MG PO DAILY PRN for NASAL CONGESTION, #30 TAB 0 Refills Prov:DIVYA SANTANA MD 02/18/23 Omeprazole (Omeprazole) 40 Mg Capsule.dr, 40 MG PO DAILY, #30 CAP Prov:TATYANA LIU MD 02/07/23 Methylprednisolone (Medrol) 4 Mg Tab.ds.pk, 4 MG PO AD for 5 Days, #1 KIT Prov:LEANNE MILLS MD 08/27/22 Methylprednisolone (Medrol) 4 Mg Tab.ds.pk, 4 MG PO AD for 5 Days, #1 KIT Prov:LEANNE MILLS MD 04/23/22 D-Methorphan Hb/P-Epd HCl/Bpm (Bromfed Dm Cough Syrup) 118 Ml Syrup, 10 ML PO QID for COUGH, #120 ML Prov:LEANNE MILLS MD 04/23/22 Acetaminophen (Acetaminophen) 500 Mg Tablet, 1000 MG PO QID for FEVER, #50 TAB Prov:LEANNE MILLS MD 04/23/22 Azithromycin (Azithromycin) 1 Gm Packet, 1 TAB PO AD for 5 Days, #1 PKT Prov:LEANNE MILLS MD 04/23/22 Past Medical History Past Medical History: Anemia, Anxiety, Hypothyroid, Seizure, Other Medical History Other: EPILEPSY, iron deficiency Past Surgical History: None Surgical History Other: ABD SX AT 18 DAYS OLD-unknown Family History Family History: CAD, DM, HTN Social History Social History: Negative, Lives with family Female( History) History: Not Applicable Constitutional: (-) chills, (-) diaphoresis, (-) fever, (-) malaise, (-) weakness, (-) other documentation EENTM: (-) eye pain, (-) blurred vision, (-) tearing, (-) double vision, (-) ear pain, (-) ear discharge, (-) nose pain, (-) nose congestion, (-) throat pain, (-) Throat swelling, (-) mouth pain, (-) tooth pain, (-) mouth swelling, (-) other documentation Respiratory: (-) cough, (-) orthopnea, (-) short of breath, (-) stridor, (-) w heezing, (-) other documentation Cardiovascular: (-) chest pain, (-) edema, (-) palpitations, (-) syncope, (-) dyspnea on exertion, (-) other documentation Gastrointestinal/Abdominal: (-) nausea, (-) vomiting, (-) diarrhea, (-) abdominal pain, (-) abdominal distention, (-) constipation, (-) rectal bleeding, (-) dark stool/melena, (-) other documentation Genitourinary: (-) vaginal discharge, (-) vaginal bleeding, (-) dysuria, (-) frequency, (-) hematuria, (-) pain, (-) other documentation Musculoskeletal: (-) Neck pain, (-) back pain, (-) Flank Pain, (-) joint pain, (-) joint swelling, (-) muscle pain, (-) muscle stiffness, (-) gout, (-) other documentation Skin: (+) laceration Physical Exam General Appearance: (+) mild distress Orientation: (+) alert Head/Face Trauma: Yes Face Comment Patient has a scalp laceration on her mid parietal region. Eye: bilateral eye normal inspection, bilateral eye PERRL, bilateral eye EOMI Ear, Nose, Throat: (+) hearing grossly normal, (+) normal ENT inspection Neck: (+) normal inspection, (+) supple, (+) full range of motion, (+) non- tender Neck Comment Patient has no C-spine tenderness and no paraspinal muscle tenderness. 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 Extremities: (+) normal range of motion, (+) non-tender, (+) normal inspection, (+) no pedal edema Results Laboratory and Microbiology Lab and Micro Result Laboratory Tests Test 12/22/24 22:05 White Blood Count 7.4 K/uL (4.8-10.8) Red Blood Count 3.76 MIL/uL (4.00-5.50) L Hemoglobin 6.9 g/dL (12.0-16.0) *L Hematocrit 25.2 % (36-48) L Mean Corpuscular Volume 67.0 fL (79-99) L Mean Corpuscular Hemoglobin 18.4 pg (27.0-33.0) L Mean Corpuscular Hemoglobin Concent 27.4 g/dL (32.0-36.0) L Red Cell Distribution Width 17.1 % (11.0-15.5) H Platelet Count 446 K/uL (130-400) H Mean Platelet Volume 10.6 fL (7.5-10.5) H Immature Granulocyte % (Auto) 0.3 % (0-1) Neutrophils (%) (Auto) 67.5 % (40.0-77.0) Lymphocytes (%) (Auto) 22.0 % (21.0-51.0) Monocytes (%) (Auto) 8.4 % (3.0-13.0) Eosinophils (%) (Auto) 0.8 % (0.0-8.0) Basophils (%) (Auto) 1.0 % (0.0-5.0) Neutrophils # (Auto) 5.0 K/uL (1.8-7.7) Lymphocytes # (Auto) 1.6 K/uL (1.0-4.8) Monocytes # (Auto) 0.6 K/uL (0.1-1.0) Eosinophils # (Auto) 0.06 K/uL (0.00-0.70) Basophils # (Auto) 0.07 K/uL (0.00-0.20) Absolute Immature Granulocyte (auto 0.02 K/uL (0-1) Nucleated Red Blood Cells 0.0 % (0.0-0.19) Red Blood Cell Morphology See comments Sodium Level 142 mmol/L (136-145) Potassium Level 3.5 mmol/L (3.5-5.1) Chloride Level 106 mmol/L (101-111) Carbon Dioxide Level 29 mmol/L (21-32) Blood Urea Nitrogen 10 mg/dL (7-18) Creatinine 0.6 mg/dL (0.5-1.0) Glomerular Filtration Rate Calc 111 mL/min (>90) Random Glucose 107 mg/dL (70-105) H Total Calcium 8.9 mg/dL (8.5-10.1) Iron Level 9 mcg/dL (50-170) L Total Iron Binding Capacity 469 mcg/dL (250-450) H Percent Iron Saturation 1.9 % (22-44) L Troponin I High Sensitivity 6 ng/L (4-50) MDM MDM: Differential diagnosis: CVA, TIA, seizure, dehydration, electrolyte abnormality, anemia, infection, Rationale: Tests considered and ordered secondary to shared decision making include: Previous outside records reviewed: Old ER visits. Risk of complication and/or morbidity or mortality of patient management: None Medications-Per medication reconciliation Need for hospitalization: Patient does meet criteria for hospitalization. Need for emergency major/minor surgery: No There are no social concerns with this patient. Prescription drug management Prescriptions will include symptomatic care Patient's prior external medical records from other ER visits were reviewed by me as indicated. Prior testing and results from previous visits were reviewed. Prior tests were taken into account with medical decision making and resource utilization, independent historian/historians were used to obtain complete medical history. I independently interpreted the test that were performed, results were reviewed by me and considered findings on radiology if ordered. Patient's hemoglobin is 6.9 she does have a history of anemia. Her serum iron level is low at nine with a an iron saturation of 1.9%. I discussed these findings with the patient and we will give her some IV sucrose. I will also give her another L of fluid as she is still feels dehydrated. Patient feels better after receiving the additional fluid and the iron sucrose. We will discharge her home. ED Course Orders Procedure Category Date Status Time Dermabond (Dermabond) PHA 12/22/24 Complete 21:30 Dermabond (Dermabond) PHA 12/22/24 Complete 21:31 Lactated Ringers PHA 12/22/24 Complete 1000ml (Lactated 21:46 Basic Metabolic Panel LAB 12/22/24 Complete 21:47 Cbc With Differential LAB 12/22/24 Complete 21:47 Urinalysis Profile LAB 12/22/24 Logged 21:47 Troponin I High LAB 12/22/24 Complete Sensitivity 21:47 12 Lead Ekg Tracing- EKG 12/22/24 Logged Technical 21:47 ,Urine Test LAB 12/22/24 Logged 21:47 Drug Screen Urine LAB 12/22/24 Logged 21:47 Iron Panel With %Sat LAB 12/22/24 Complete 21:47 Alprazolam 1mg (Xanax PHA 12/22/24 Complete 1mg) 22:00 Iron Sucrose Complex PHA 12/23/24 Complete (Venofer) 00:30 Lactated Ringers PHA 12/23/24 Complete 1000ml (Lactated 00:09 Current Medications Medications (Trade) Dose Ordered Sig/Latha Route PRN Reason Start Time Stop Time Status Last Admin Dose Admin Alprazolam (XANax 1MG) 1 mg ONCE ONCE PO 12/22/24 22:00 12/22/24 22:01 DC 12/22/24 22:10 Iron Sucrose (VenoFER) 200 mg ONCE ONCE IV 12/23/24 00:30 12/23/24 00:31 DC 12/23/24 00:22 Lactated Ringer's (Lactated Ringers 1000ml) 1,000 ml BOLUS STAT IV 12/22/24 21:46 12/22/24 21:50 DC 12/22/24 22:10 Lactated Ringer's (Lactated Ringers 1000ml) 1,000 ml BOLUS STAT IV 12/23/24 00:09 12/23/24 00:12 DC 12/23/24 00:18 Octyl Cyanoacrylate (Dermabond) 1 each ONCE ONCE TP 12/22/24 21:30 12/22/24 21:31 DC 12/22/24 21:34 Octyl Cyanoacrylate (Dermabond) 1 each STK-MED ONCE TP 12/22/24 21:31 12/22/24 21:32 DC Vital Signs Date Time Temp Pulse Resp B/P (MAP) Pulse Ox O2 Delivery O2 Flow Rate FiO2 12/22/24 22:45 98.8 99 20 125/66 98 Room Air* 0 21 12/22/24 21:26 98.8 100 20 134/95 98 Room Air* 0 21 12/22/24 21:15 113 18 126/66 98 DX & DISP Disposition: Discharge Departure Impression: Primary Impression: Syncope Condition: Stable Additional Instructions: Please return to the emergency room if you continue to have seizures please contact your primary care physician or neurologist about refilling the Xanax prescription. Referrals: LIAM RESENDEZ MD (PCP) MITZY ARAUJO MD Dec 22, 2024 21:45
[2024-12-22] MEDS: LACTATED RINGERS 1000ML IV STA (22:10)
[2024-12-22 22:29] LABS: IMMATURE GRANULOCYTE ABSOLUTE 0.02 K/uL (0-1); NUCLEATED RED BLOOD CELLS 0.0 % (0.0-0.19); PLATELET COUNT (AUTO) 446 K/uL (130-400); RED BLOOD CELL COUNT(AUTO) 3.76 MIL/uL (4.00-5.50); RED CELL DISTRIBUTION WIDTH 17.1 % (11.0-15.5); WHITE BLOOD COUNT (AUTO) 7.4 K/uL (4.8-10.8)
[2024-12-22 22:40] LABS: CREATININE 0.6 mg/dL (0.5-1.0); GLOMERULAR FILTR. RATE CALC 111.0 mL/min (>90); GLUCOSE,RANDOM 107.0 mg/dL (70-105); SODIUM SERUM 142.0 mmol/L (136-145); UREA NITROGEN, BLOOD 10.0 mg/dL (7-18)
[2024-12-22 22:45] VITALS: BP 125/66; PULSE 99; RESP 20; TEMP 98.8; O2SAT 98
[2024-12-22 22:59] LABS: TROPONIN I HIGH SENSITIVITY 6.0 ng/L (4-50)
[2024-12-22 23:09] LABS: % IRON SATURATION 1.9 % (22-44); IRON, SERUM 9.0 mcg/dL (50-170)
[2024-12-23] MEDS ORDERED: ALPR-412 PO (00:11)
[2024-12-23] MEDS: LACTATED RINGERS 1000ML IV STA (00:18)
--- NOTE | 2024-12-23 16:05 | EKG ---
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
== END 2024-12-23 02:33 | disposition home or self-care (01) ==
LOC: EDH 21:14
DX: S01.01XA Laceration without foreign body of scalp, initial encounter (principal); R55 Syncope and collapse; F41.9 Anxiety disorder, unspecified; E03.9 Hypothyroidism, unspecified; G40.909 Epilepsy, unspecified, not intractable, without status epilepticus; Z79.899 Other long term (current) drug therapy; Z88.0 Allergy status to penicillin; W18.39XA Other fall on same level, initial encounter; Y93.89 Activity, other specified; Y92.89 Other specified places as the place of occurrence of the external cause; Y99.8 Other external cause status
CPT/HCPCS: 99284; 83540; 83550; 84484; 80048; 85025; 36415; 93005; 96374; 96361; J7120; J1756

== ENCOUNTER 2025-03-31 22:26 | Emergency (ER) | payer MEDICAID ==
[~2025-03-31] VITALS: Ht 157.5 cm; Wt 65.3 kg
--- NOTE | 2025-03-31 22:36 | NUR ---
PT STATES SHE CALLED EMS [address] [employer] IN ER TO HER HOME, REFUSED TRANSPORT " THEY WOULDNT LET MY COME WITH ME"
[2025-03-31] MEDS: 0.9%NACL 1000ML 1,000 ML IV ONE (23:17)
[2025-03-31 23:37] LABS: IMMATURE GRANULOCYTE ABSOLUTE 0.02 K/uL (0-1); NUCLEATED RED BLOOD CELLS 0.0 % (0.0-0.19); PLATELET COUNT (AUTO) 308 K/uL (130-400); RED BLOOD CELL COUNT(AUTO) 4.07 MIL/uL (4.00-5.50); RED CELL DISTRIBUTION WIDTH 16.8 % (11.0-15.5); WHITE BLOOD COUNT (AUTO) 9.8 K/uL (4.8-10.8)
[2025-03-31 23:44] LABS: CREATININE 0.5 mg/dL (0.5-1.0); GLOMERULAR FILTR. RATE CALC 116.0 mL/min (>90); GLUCOSE,RANDOM 91.0 mg/dL (70-105); SODIUM SERUM 142.0 mmol/L (136-145); UREA NITROGEN, BLOOD 12.0 mg/dL (7-18)
[2025-03-31 23:45] LABS: APPEARANCE,URINE CLEAR (CLEAR); GLUCOSE, URINE (UA) NEGATIVE (NEGATIVE); LEUKOCYTE ESTERASE ,URINE 25 Leu/uL (NEGATIVE); NITRATE,URINE NEGATIVE (NEGATIVE); OCCULT BLOOD,URINE NEGATIVE (NEGATIVE)
[2025-03-31 23:53] LABS: ADD UA MICROSCOPIC YES
[2025-03-31 23:57] LABS: SQUAMOUS EPITHELIAL CELL,UR FEW /HPF (0-2)
--- NOTE | 2025-03-31 23:59 | ERN ---
General Chief Complaint: Multiple Complaints Stated Complaint: DRY MOUTHM WEAKNESS, SOB, BLURRY VISION Time Seen by MD: 22:28 Time Seen by Midlevel: 22:28 Source: patient History of Present Illness Initial Comments 41-year-old female with a past medical history of chronic anemia and seizures presents to the emergency department with multiple complaints. Patient reports feeling dehydrated with dry mouth and generalized body weakness. Patient states she feels similar to the previous time she has had a seizure. Denies any other symptoms at this time. Allergies: Coded Allergies: Penicillins (Unverified Allergy, Unknown, 12/03/21) acetaminophen (Unverified Allergy, Unknown, 03/31/25) amoxicillin (Unverified Allergy, Unknown, 03/31/25) chlorpromazine (Unverified Allergy, Unknown, 03/31/25) codeine (Unverified Allergy, Unknown, 03/31/25) Home Meds Active Scripts Naproxen (Naproxen) 375 Mg Tablet.dr, 375 MG PO BID PRN for PAIN LEVEL 1 TO 5 for 10 Days, #20 TAB Prov:DIMITRY FLORES MD 05/16/24 Benzonatate (Tessalon Perles) 100 Mg Cap, 100 MG PO TID for cough, #20 CAP Prov:GLOIRA MESA DO 11/10/23 Nebulizer (Nebulizer) 1 Each Each, EACH MC QID for copd exacerbation, #1 Prov:TATYANA LIU MD 08/20/23 Albuterol Sulfate (Albuterol Sulfate) 2.5 Mg/3 Ml (0.083 %) Vial.neb, 2.5 MG IH QIDP PRN for WHEEZING, #120 INH Prov:TATYANA LIU MD 08/20/23 Metoclopramide HCl (Reglan) 10 Mg Tablet, 10 MG PO QIDP PRN for NAUSEA, #20 TAB 1 Refill Prov:RAJEEV BROWN Sr., MD 07/23/23 Metronidazole (Metronidazole) 500 Mg Tablet, 500 MG PO TID for 7 Days, #21 TAB 0 Refills Prov:RAJEEV BROWN Sr., MD 07/23/23 Cetirizine HCl (Cetirizine HCl) 10 Mg Tablet, 10 MG PO DAILY PRN for NASAL CON GESTION, #30 TAB 0 Refills Prov:DIVYA SANTANA MD 02/18/23 Omeprazole (Omeprazole) 40 Mg Capsule.dr, 40 MG PO DAILY, #30 CAP Prov:TATYANA LIU MD 02/07/23 Methylprednisolone (Medrol) 4 Mg Tab.ds.pk, 4 MG PO AD for 5 Days, #1 KIT Prov:LEANNE MILLS MD 08/27/22 Methylprednisolone (Medrol) 4 Mg Tab.ds.pk, 4 MG PO AD for 5 Days, #1 KIT Prov:LEANNE MILLS MD 04/23/22 D-Methorphan Hb/P-Epd HCl/Bpm (Bromfed Dm Cough Syrup) 118 Ml Syrup, 10 ML PO QID for COUGH, #120 ML Prov:LEANNE MILLS MD 04/23/22 Acetaminophen (Acetaminophen) 500 Mg Tablet, 1000 MG PO QID for FEVER, #50 TAB Prov:LEANNE MILLS MD 04/23/22 Azithromycin (Azithromycin) 1 Gm Packet, 1 TAB PO AD for 5 Days, #1 PKT Prov:LEANNE MILLS MD 04/23/22 Past Medical History Past Medical History: Anemia, Anxiety, Depression, Hypothyroid, Migraines, Seizure, Other Medical History Other: FATTY LIVER, HERNIATED DISK Past Surgical History: None Surgical History Other: ABD SX AT 18 DAYS OLD-unknown Family History Family History: CAD, DM, HTN Social History Social History: Negative, Lives with family Female( History) History: Not Applicable ROS Dictation CONSTITUTIONAL: Negative except for HPI HEAD/FACE: Negative except for HPI EENT: Negative except for HPI RESPIRATORY: Negative except for HPI GASTROINTESTINAL/ABDOMINAL: Negative except for HPI GENITOURINARY: Negative except for HPI MUSCULOSKELETAL: Negative except for HPI INTEGUMENTARY: Negative except for HPI NEUROLOGICAL/PSYCH: Negative except for HPI HEMATOLOGIC/LYMPHATIC: Negative except for HPI All Systems Negative, Except as noted above. 13 point review of systems assessed and all negative except for above. Physical Exam Physical Exam Dictation Vital Signs reviewed General Appearance: Alert, oriented x 3, no acute distress, well developed, nourished. Head and Face: non-traumatic. Eyes: PERRL, pink conjunctivas, eyelid no trauma, anterior chamber with arcus senilis. Ears: Pinnas intact and no signs of trauma or erythema ear canals clear and no discharge TM no erythema Nose: No discharge, no bleeding. Oropharynx: Mouth normal, tongue pink, pharynx clear,no erythema, tonsils no exudates, no abscesses noted, mucous membrane moist Neck: Supple, non-tender, no thyromegaly, no masses, no JVD, no bruits Breast:Deferred Chest:No tenderness, no crepitus, no paradoxical movement, no retractions Lungs:Clear, well-ventilated, symmetric, no rales, no wheezing, no rhonchi, no stridor, good breath sounds bilaterally Heart: Regular rate, regular rhythm, no murmur, no gallops Vascular: no peripheral edema, Abdomen: Soft, positive bowel sounds, nondistended, no guarding, nontender, no rebound, no masses no hepatomegaly, no splenomegaly, no Petit's sign, no hernias. Rectal: Deferred Genital: Deferred Neurological: Normal speech, motor function intact, sensory function intact Musculoskeletal: Neck nontender, full range of motion, back nontender, full range of motion, Extremities: nontender, full range of motion Skin: Color pink, dry, no turgor, no rash, no lacerations, no abrasions, no contusions. Lymphatic: Deferred Results Laboratory and Microbiology Lab and Micro Result Laboratory Tests Test 03/31/25 23:30 White Blood Count 9.8 K/uL (4.8-10.8) Red Blood Count 4.07 MIL/uL (4.00-5.50) Hemoglobin 7.7 g/dL (12.0-16.0) L Hematocrit 27.5 % (36-48) L Mean Corpuscular Volume 67.6 fL (79-99) L Mean Corpuscular Hemoglobin 18.9 pg (27.0-33.0) L Mean Corpuscular Hemoglobin Concent 28.0 g/dL (32.0-36.0) L Red Cell Distribution Width 16.8 % (11.0-15.5) H Platelet Count 308 K/uL (130-400) Mean Platelet Volume 10.1 fL (7.5-10.5) Immature Granulocyte % (Auto) 0.2 % (0-1) Neutrophils (%) (Auto) 67.7 % (40.0-77.0) Lymphocytes (%) (Auto) 22.2 % (21.0-51.0) Monocytes (%) (Auto) 8.8 % (3.0-13.0) Eosinophils (%) (Auto) 0.3 % (0.0-8.0) Basophils (%) (Auto) 0.8 % (0.0-5.0) Neutrophils # (Auto) 6.6 K/uL (1.8-7.7) Lymphocytes # (Auto) 2.2 K/uL (1.0-4.8) Monocytes # (Auto) 0.9 K/uL (0.1-1.0) Eosinophils # (Auto) 0.03 K/uL (0.00-0.70) Basophils # (Auto) 0.08 K/uL (0.00-0.20) Absolute Immature Granulocyte (auto 0.02 K/uL (0-1) Nucleated Red Blood Cells 0.0 % (0.0-0.19) Urine Color YELLOW (YELLOW) Urine Appearance CLEAR (CLEAR) Urine pH 6.5 (5.0-8.0) Urine Specific [place] 1.035 (1.001-1.031) Urine Protein 30 mg/dL (NEGATIVE) H Urine Glucose (UA) NEGATIVE mg/dL (NEGATIVE) Urine Ketones 10 mg/dL (NEGATIVE) H Urine Occult Blood NEGATIVE (NEGATIVE) Urine Nitrate NEGATIVE (NEGATIVE) Urine Bilirubin NEGATIVE mg/dL (NEGATIVE) Urine Urobilinogen 2.0 mg/dL (0.2-1.0) H Urine Leukocyte Esterase 25 Jason/uL (NEGATIVE) H Sodium Level 142 mmol/L (136-145) Potassium Level 3.6 mmol/L (3.5-5.1) Chloride Level 105 mmol/L (101-111) Carbon Dioxide Level 25 mmol/L (21-32) Blood Urea Nitrogen 12 mg/dL (7-18) Creatinine 0.5 mg/dL (0.5-1.0) Glomerular Filtration Rate Calc 116 mL/min (>90) Random Glucose 91 mg/dL (70-105) Total Calcium 8.9 mg/dL (8.5-10.1) Magnesium Level 2.30 mg/dL (1.80-2.40) Serum Test, Qualitative NEGATIVE (NEGATIVE) Labs Reviewed?: Yes MDM MDM: Differential diagnosis: Dehydration, electrolyte abnormality, anemia There are no social concerns with this patient. Prescription drug management Prescriptions will include: None Medical management and examination interpretation discussions were had by me with other qualified healthcare professionals as indicated for the patient's care. ED Course Orders Procedure Category Date Status Time Cbc With Differential LAB 03/31/25 In Process 23:03 Basic Metabolic Panel LAB 03/31/25 Complete 23:03 Magnesium LAB 03/31/25 Complete 23:03 Testing, LAB 03/31/25 Complete Serum Hcg 23:03 Urinalysis Profile LAB 03/31/25 In Process 23:03 0.9%Nacl 1000ml (Ns PHA 03/31/25 Complete 1000ml) 23:30 Current Medications Medications (Trade) Dose Ordered Sig/Latha Route PRN Reason Start Time Stop Time Status Last Admin Dose Admin Sodium Chloride 1,000 ml @ 0 mls/hr ONCE ONCE IV 03/31/25 23:30 03/31/25 23:31 DC 03/31/25 23:17 Vital Signs Date Time Temp Pulse Resp B/P (MAP) Pulse Ox O2 Delivery O2 Flow Rate FiO2 03/31/25 23:39 98 16 122/66 99 Room Air* 0 21 03/31/25 22:27 97.9 104 20 125/71 98 Room Air DX & DISP Disposition: Discharge Departure Impression: Primary Impression: Chronic anemia Additional Impression: Wellness examination Condition: Stable Referrals: LIAM RESENDEZ MD (PCP) I have reviewed the case, and I agree with, Diagnosis and Plan I performed the substantive portion of the visit. I have reviewed and personally made and approve the management plan that is documented in the note by myself or the MARY. I acknowledge for responsibility for the patient's management plan. CRISPIN CORMIER PAC Mar 31, 2025 23:59
[2025-04-01 00:03] VITALS: BP 122/72; PULSE 80; RESP 16; TEMP 97; O2SAT 98
== END 2025-04-01 00:10 | disposition home or self-care (01) ==
LOC: EDH 22:26
DX: D64.9 Anemia, unspecified (principal); E03.9 Hypothyroidism, unspecified; G43.909 Migraine, unspecified, not intractable, without status migrainosus; F41.9 Anxiety disorder, unspecified; Z88.0 Allergy status to penicillin; Z88.5 Allergy status to narcotic agent; Z88.6 Allergy status to analgesic agent; Z79.899 Other long term (current) drug therapy
CPT/HCPCS: 99283; 96360; 83735; 80048; 84703; 85025; 81001; 36415; J7030